=== PATIENT | male | born 1970 | race Two or more races ===

== ENCOUNTER 2024-02-29 13:04 | Emergency (ER) | payer SELFPAY ==
[2024-02-29 13:06] VITALS: BP 121/81; BMI 21.3
[2024-02-29 13:10] LABS: Glucose - Point of Care 90 mg/dl (70-99)
--- NOTE | 2024-02-29 13:10 | ED.GENMED ---
History of Present Illness
General
Chief Complaint: Seizure
Source: patient
Exam Limitations: none
Time Seen by Provider: 02/29/24 13:07
History of Present Illness
History of Present Illness:
See MDM
Past History
Past History
ED Past Medical History: Other
ED Past Surgical History: None
Social History
Tobacco: Non-smoker
Alcohol: None
Phy Exam
Physical Exam
Physical Exam:
See MDM
Course
Orders/Labs/Results
Orders:
Orders
02/29/24 13:08
Complete Blood Count/With Diff Urgent
Comprehensive Metabolic Panel Urgent
02/29/24 13:09
Phenytoin Sodium [Dilantin] 500 mg IV NOW STA
02/29/24 13:45
Phenytoin [Dilantin] 500 mg PO STAT STA
Vital Signs
Initial and Last Documented VS:
Initial Vital Signs
Temp Pulse Resp BP Pulse Ox
97.9 F 76 14 121/81 100
02/29/24 13:06 02/29/24 13:06 02/29/24 13:06 02/29/24 13:06 02/29/24 13:06
Last Documented Vital Signs
Temp Pulse Resp BP Pulse Ox
97.9 F 73 11 127/88 95
02/29/24 13:06 02/29/24 14:00 02/29/24 14:00 02/29/24 14:00 02/29/24 13:46
MDM/Problems Addressed
Differential Diagnosis Includes:
HPI and MDM Narrative:
53-year-old male presenting for evaluation of breakthrough seizure. 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 Is not certain how long it lasted. EMS did not witness seizure activity. On my exam,
patient is postictal but he is now awake and alert and answering questions appropriately. EMS stating this is improved from his exam.
No trauma noted on exam. He is answering questions appropriately. He does appear postictal. He is moving all 4 extremities without difficulty. When questioned, he does have a history of seizure disorder and has not taken his Dilantin or
phenobarbital in 5 or 6 months.
Given his history, will load with Dilantin
Physical exam
General: Postictal and groggy but answering questions appropriately. No evidence of trauma on exam
HEENT: protecting airway
Neck: supple
CV: No evidence of cyanosis
Resp: No accessory muscle use
Abd: Non-distended
Extremities: No deformities
Neuro: Moving all 4 extremities. No focal deficits
Psych: Normal affect
Skin: Intact
Problems Addressed including Acute and Chronic Conditions affecting care:
1. Breakthrough seizure
Acuity: acute
Prognosis: stable
Details: Appears to be related to noncompliance to his Dilantin and phenobarbital. Will load with dilate 500 mg IV and 500 mg orally
2. [ ]
Acuity: acute
Prognosis: stable
Details:
3. [ ]
Acuity: acute
Prognosis: stable
Details:
4. [ ]
Acuity: acute
Prognosis: stable
Details:
5. [ ]
Acuity:
Prognosis:
Details:
Updates
Nursing had called indicating patient was becoming aggressive with IV placement. For staff safety, discussed no IV until patient is less postictal
2:15 PM patient no longer postictal and got out of bed and ambulated out of the hospital.
Differential Diagnosis (but not limited to): Breakthrough seizure, hyponatremia, metabolic encephalopathy
Testing considered: CT head but he is waking up there is no focal deficits
Drug therapy (if applicable): OTC meds, please see d/c instruction regarding Rx drugs
Amount and/or Complexity of Data Reviewed
Clinical info obtained from: Patient
External data reviewed: N/A
Labs I independently reviewed (but not limited to): N/A
Radiology: N/A
Pulse Ox: not hypoxic
EKG independently reviewed: N/A
Compliance Review Specialist: N/A
Critical Care: N/A
Risk of Complication:
Social Determinants of health: Good social support
Discussed with other providers: N/A
Escalation of Care includes Admit/Obs: Patient eloped
Occasional wrong word or 'sound a like' substitutions may have occurred due to the inherent limitations of voice recognition software. Read the chart carefully and recognize, using context, where substitutions have occurred.
*Critical Care Note
Total Time (30-74mins, 75-104mins- exclusive of procedures): Not Applicable
ED Attending Note
-
Portions of this chart may have been created with voice recognition software.� Occasional wrong word or��sound alike� substitutions may have occurred due to the inherent limitations of voice recognition software.
Discharge Plan
Departure
Patient Disposition: Against Medical Advice
Discharge Problem:
Seizure
Interventions
Interventions:
*Risk Screen - Suicide Last Done: 02/29/24 13:11
*General Assessment Last Done: 02/29/24 13:11
*Neglect/Abuse Screening Last Done: 02/29/24 13:11
ED- Fall Risk Assessment Last Done: 02/29/24 14:04
*ED COVID-19 Vaccine History Last Done: 02/29/24 14:04
*Nursing Disposition Last Done: 02/29/24 14:12
ED- Cardiac Assessment Last Done: 02/29/24 13:30
ED- Neurological Assessment Last Done: 02/29/24 13:30
ED- Pulmonary Assessment Last Done: 02/29/24 13:30
Discharge Date and Time
Discharge Date/Time: 02/29/24 14:10
Print Language: [id number]
[2024-02-29 13:45] VITALS: BP 107/69
[2024-02-29] MEDS: DILANTIN 500 MG PO (13:56)
[2024-02-29 14:00] VITALS: BP 127/88
== END 2024-02-29 14:10 | disposition left against medical advice (07) ==
LOC: EMR 13:04
PROVIDERS: EMERGENCY PHYSICIAN Student in an Organized Health Care Education/Training Program
DX: R56.9 Unspecified convulsions (principal); R45.1 Restlessness and agitation; Z91.148 Patient's other noncompliance with medication regimen for other reason; Z53.29 Procedure and treatment not carried out because of patient's decision for other reasons
CPT/HCPCS: 99283; 82962